=== PATIENT | female | born 1955 | race Caucasian/White ===

== ENCOUNTER 2020-12-31 18:58 | Emergency (ER) | payer MEDICARE, OTHER ==
[~2020-12-31 18:58] MED LIST: ASPIRIN81 MG PO; LORTAB 5-325 M1 EACH PO; PANTOPRAZOLE SO40 MG PO; PRINIVIL5 MG PO; ZOCOR20 MG PO
[2020-12-31 19:38] LABS: HEMOGLOBIN 14.4 gm/dl (12.3-15.3); RED BLOOD COUNT 4.55 M/UL (4.00-5.10); WHITE BLOOD COUNT 10.4 K/UL (4.5-11.0)
[2020-12-31] MEDS ORDERED: MACROBID 100 M100 M1 PO (22:24)
== END 2020-12-31 22:35 | disposition home or self-care (01) ==
LOC: ER1 18:58
PROVIDERS: Emergency Medicine
DX: N39.0 Urinary tract infection, site not specified (principal); I10 Essential (primary) hypertension; E78.5 Hyperlipidemia, unspecified; F17.200 Nicotine dependence, unspecified, uncomplicated; Z90.89 Acquired absence of other organs; Z90.49 Acquired absence of other specified parts of digestive tract; Z90.710 Acquired absence of both cervix and uterus
CPT/HCPCS: 80053; 81001; 85025; 87077; 87086; 87186; 99284; Q9967